=== PATIENT | female | born 1980 | race Caucasian/White ===

== ENCOUNTER 2018-05-03 07:58 | Inpatient (IN) | payer OTHER ==
[2018-05-03] MEDS ORDERED: BRETHINE SUB-Q PRN (08:45)
[2018-05-03] MEDS ORDERED: BRETHINE IVP PRN (08:45)
[2018-05-03] MEDS ORDERED: MINERAL OIL PO PRN (08:45)
[2018-05-03] MEDS ORDERED: XYLOCAINE 2% INFILTRATI ONE (08:45)
[2018-05-03] MEDS ORDERED: ePHEDrine SULFATE IV PRN (08:45)
[2018-05-03] MEDS ORDERED: SUBLIMAZE IV PRN (08:45)
[2018-05-03] MEDS ORDERED: LACTATED RINGERS 1,000 ML IV SCH (09:00)
[2018-05-03] MEDS ORDERED: POLYCILLIN/NS 2 GM/100 ML 2 GM/100 ML BAG IV SCH (09:00)
[2018-05-03 09:14] LABS: Hematocrit 39.9 % (30.3-42.9); Hemoglobin 12.9 gm/dl (10.1-14.3); Mean Corpuscular HGB Conc 32 % (30-34); Mean Corpuscular Hemoglobin 28 pg (28-32); Mean Corpuscular Volume 86 fl (79-97); Platelet Count 237 K/mm3 (140-440); Red Blood Count 4.61 M/mm3 (3.65-5.03); Red Cell Distribution Width 14.2 % (13.2-15.2)
[2018-05-03] MEDS ORDERED: NARCAN 2 MG/2 ML ONE (09:42)
--- NOTE | 2018-05-03 11:10 | History and Physical Report ---
History of Present Illness Date of examination: 05/03/18 Date of admission: 05/03/18 07:59 Chief complaint: Contractions History of present illness: 37yo at 40 2/7wks admitted for labor, dilated 8cm. History of x 5 and c/s x 1. She states c/s was due to "cervix did not open". She denies LOF, VB and reports good movement. She is a patient of [facility] at an auxillary clinic. Past History Past Surgical History: section Family/Genetic History: none - Obstetrical History : 7 Medications and Allergies Allergies Allergy/AdvReac Type Severity Reaction Status Date / Time No Known Allergies Allergy Verified 05/03/18 08:55 Home Medications Medication Instructions Recorded Confirmed Last Taken Type No Known Home Medications [No 05/03/18 05/03/18 Unknown History Reported Home Medications] Active Meds: Active Medications Ephedrine Sulfate (Ephedrine Sulfate) 10 mg IV Q2M PRN PRN Reason: Hypotension Fentanyl (Sublimaze) 100 mcg IV Q2H PRN PRN Reason: Labor Pain Last Admin: 05/03/18 09:58 Dose: 50 mcg Lactated Ringer's (Lactated Ringers) 1,000 mls @ 125 mls/hr IV DIRECT [facility] Last Admin: 05/03/18 09:13 Dose: 125 mls/hr Oxytocin/Sodium Chloride (Pitocin/Ns 20 Unit/1000ml Drip) 20 units in 1,000 mls @ 125 mls/hr IV DIRECT [facility] Ampicillin Sodium (Polycillin/Ns 2 Gm/100 Ml) 2 gm in 100 mls @ 100 mls/hr IV ONCE [facility]; Protocol Last Admin: 05/03/18 09:13 Dose: 100 mls/hr Ampicillin Sodium (Ampicillin/Ns 1 Gm/50 Ml) 1 gm in 50 mls @ 100 mls/hr IV Q4HR [facility]; Protocol Mineral Oil (Mineral Oil) 30 ml PO QHS PRN PRN Reason: Constipation Terbutaline Sulfate (Brethine) 0.25 mg SUB-Q ONCE PRN PRN Reason: Hyperstimulation/Hypertonicity Terbutaline Sulfate (Brethine) 0.25 mg IVP ONCE PRN PRN Reason: Hyperstimulation/Hypertonicity - Vital Signs Vital signs: Vital Signs Temp Resp 97.9 F 18 05/03/18 09:40 05/03/18 09:40 Temp Pulse Resp BP Pulse Ox 97.9 F 18 05/03/18 09:40 05/03/18 09:40 - Physical Exam Extremities: Positive: normal - Obstetrical FHR: category 1 Uterine Contraction Monitor Mode: External Cervical Dilatation: 8 Cervical Effacement Percentage: 80 station: -1 Uterine Contraction Pattern: Regular Uterine Contraction Intensity: Mild (No signs of distress. No) Results Result Diagrams: 05/03/18 08:40 Abnormal lab results 05/03/18 Range/Units 08:40 WBC 13.0 H (4.5-11.0) K/mm3 All other labs normal.
[2018-05-03] MEDS: PITOCin/NS 20 UNIT/1000ML DRIP 20 UNITS/1,000 ML BAG IV SCH ×2 (11:40→12:54)
--- NOTE | 2018-05-03 11:53 | Procedure Note ---
OB Delivery Note - Delivery Date of Delivery: 05/03/18 (1134am) Surgeon: CHARLI ROBERSON Estimated blood loss: 100cc - Vaginal Delivery position: OA Delivery induction: none Delivery augmentation: rupture of membranes Delivery monitor: external FHT Route of delivery: Delivery placenta: spontaneous Delivery cord: 3 umbilical vessels Episiotomy: none Delivery laceration: 1st degree Delivery repair: other (Hemostatic-no repair indicated, left lower labia) Anesthesia: intravenous Delivery comments: Spontaneous delivery, rigorous , firm uterus post-delivery - Infant A at 1 minute: 8 at 5 minutes: 9 Infant Gender: Male (Weight: 3299g)
[2018-05-03] MEDS ORDERED: PHENERGAN PO PRN (12:00)
[2018-05-03] MEDS ORDERED: ZOFRAN IV PRN (12:00)
[2018-05-03] MEDS ORDERED: PHENERGAN PR PRN (12:00)
[2018-05-03] MEDS ORDERED: SODIUM CHLORIDE FLUSH SYRINGE 10 ML IV NR (12:00)
[2018-05-03] MEDS ORDERED: TUCKS PAD TP PRN (12:00)
[2018-05-03] MEDS ORDERED: TYLENOL PO PRN (12:00)
[2018-05-03] MEDS ORDERED: MILK OF MAGNESIA PO PRN (12:00)
[2018-05-03] MEDS ORDERED: BENADRYL PO PRN (12:00)
[2018-05-03] MEDS ORDERED: LANSINOH TP PRN (12:00)
[2018-05-03] MEDS ORDERED: DULCOLAX PR PRN (12:00)
[2018-05-03] MEDS: MOTRIN PO SCH (12:54)
[2018-05-03] MEDS ORDERED: AMPICILLIN/NS 1 GM/50 ML 1 GM/50 ML BAG IV SCH (13:00)
[2018-05-03] MEDS: NORCO 5/325 PO PRN (17:40)
[2018-05-04] MEDS: MOTRIN PO SCH ×4 (00:02→23:16)
[2018-05-04 00:06] LABS: Hematocrit 36.5 % (30.3-42.9)
--- NOTE | 2018-05-04 10:23 | Progress Note ---
Assessment and Plan A: PP Day #1 Stable P: Follow Routine Orders D/C home today RTO in 6 Weeks Subjective - Subjective Date of service: 05/04/18 Patient reports: appetite normal, voiding normally, pain well controlled, flatus , ambulating normally : doing well, bottle feeding Objective - Vital Signs Latest vital signs: Vital Signs Temp Pulse Resp BP BP 05/04/18 08:05 97.9 F 66 18 88/53 05/04/18 00:00 98.7 F 71 16 97/78 05/03/18 20:00 98.7 F 67 16 87/69 05/03/18 13:30 98 F 62 18 86/42 05/03/18 13:03 71 99/54 05/03/18 12:53 98.1 F 16 05/03/18 12:48 68 101/55 05/03/18 12:33 77 101/51 05/03/18 12:18 84 123/72 05/03/18 12:03 85 96/69 05/03/18 11:48 96 H 89/63 05/03/18 11:34 94 H 112/61 Intake and Output 05/03/18 05/04/18 05/04/18 22:59 06:59 14:59 Intake Total 300 300 240 Output Total 1700 600 Balance -1400 300 -360 Intake: Oral 240 Intake, Free Water 300 300 Output: Urine 1700 600 Void 1700 600 Other: Total, Intake Amount 240 Total, Output Amount 800 600 # Voids Void 1 - Exam Breasts: Present: normal Cardiovascular: Present: Regular rate Lungs: Present: Clear to auscultation, Normal air movement Abdomen: Present: normal appearance, soft, normal bowel sounds Uterus: Present: normal, firm, fundal height below umbilicus Extremities: Present: normal
--- NOTE | 2018-05-04 10:24 | Discharge Summary ---
Providers - Providers Date of Admission: 05/03/18 07:59 Date of discharge: 05/04/18 Attending physician: JN LOCO MD Primary care physician: JN LOCO MD Hospitalization Reason for admission: active labor Delivery: Episiotomy: none Laceration: none Other procedures: none complications: none Discharge diagnosis: IUP at term delivered [place] baby: male Condition at discharge: Good Disposition: DC-01 TO HOME OR SELFCARE Plan - Provider Discharge Summary Activity: routine, no sex for 6 weeks, no heavy lifting 4 weeks, no strenuous exercise Diet: routine Instructions: routine Additional instructions: [] Smoking cessation referral if applicable(refer to patient education folder for contact #) [] Refer to [facility] Booklet Call your doctor immediately for: * Fever > 100.5 * Heavy vaginal bleeding ( >1 pad per hour) * Severe persistent headache * Shortness of breath * Reddened, hot, painful area to leg or breast * Drainage or odor from incision. * Keep incision clean and dry at all times and follow doctor's instructions regarding bathing/showering - Follow up plan Follow up: JN LOCO MD [Primary Care Provider] - 6 Weeks
[2018-05-04] MEDS: NORCO 5/325 PO PRN (16:20)
[2018-05-05] MEDS: MOTRIN PO SCH (05:07)
[2018-05-05 12:19] VITALS: BP 111/70
== END 2018-05-06 10:37 | disposition home or self-care (01) | DRG 775 ==
LOC: TRG 07:58 → LD 07:59 → OB 13:26
PROVIDERS: ADMIT Obstetrics & Gynecology; ATTEND Obstetrics & Gynecology
PROC: 10E0XZZ Delivery of Products of Conception, External Approach (ICD-10-PCS; principal; 2018-05-03)
PROC: 0HQ9XZZ Repair Perineum Skin, External Approach (ICD-10-PCS; 2018-05-03)
DX: O34.211 Maternal care for low transverse scar from previous cesarean delivery (principal); O70.0 First degree perineal laceration during delivery; Z3A.40 40 weeks gestation of pregnancy; Z37.0 Single live birth
CPT/HCPCS: 36415; 85014; 85018; 85027; 86592; 86850; 86900; 86901; 99211; G0463; J0290; J2310; J2590; J3010; J7120